=== PATIENT | female | born 1985 | race Caucasian/White ===

== ENCOUNTER 2020-02-24 20:35 | Emergency (ER) | payer OTHER, SELFPAY ==
--- NOTE | ~2020-02-24 | CT_ITS ---
EXAMINATION: CT knee RT w con DATE: 02/24/2020 INDICATION: Severe pain from the posterior lower right thigh to the posterior knee. TECHNIQUE: High resolution computed tomography (CT) of the right knee was performed with 100 mL Omnip aque-350 intravenous contrast. Additional sagittal and coronal reconstructions were performed. Automa yamileth exposure control and iterative reconstruction technique were employed. The dose-length product wa s 579.73 mGy-cm. COMPARISON: Radiographs dated 02/24/2020 FINDINGS: Bone alignment is normal. No fracture. Joint spaces appear normal on nonweightbearing imaging. Promin ent bone island at the posterior medial metaphyseal region of the distal femur with a couple small eddie ne islands at the medial femoral condyle. No right knee joint effusion. Contrast is seen extending fr om the popliteal artery into the proximal posterior tibial, anterior tibial and peroneal arteries wit h no evident aneurysm, dissection or stenosis. No abscess or other abnormally fluid collections. No a bnormally enhancing lesions. Although assessment is significantly more limited with CT than with MRI, the soft tissues including the muscles, tendons and stabilizing ligaments of the knee appear normal. No evident soft tissue swelling or inflammatory stranding. IMPRESSION: 1. Normal contrast-enhanced CT of the right knee. Reviewed, dictated and finalized at location A. ASSISTANT
--- NOTE | ~2020-02-24 | XR_ITS ---
EXAMINATION: XR knee RT 3V DATE: 02/24/2020 20:59 INDICATION: 2 months of nontraumatic posterior right knee pain. TECHNIQUE: Anteroposterior, oblique and crosstable lateral views of the right knee were obtained COMPARISON: None. FINDINGS: Alignment is normal. No fracture. 3 bone islands in the distal femur. No joint effusion/layering lip ohemarthrosis. Soft tissues are unremarkable. IMPRESSION: 1. No right knee joint effusion or acute osseous abnormality. Reviewed, dictated and finalized at location A. UREMENT ENGINEER
[2020-02-24 20:41] VITALS: BP 114/82; PULSE 65; RESP 18; TEMP 36.2; O2SAT 100
[2020-02-24 21:44] LABS: Basophils Percent Auto 0.2 % (0.2-1.2); Eosinophils Absolute Auto 0.1 K/mm3 (0-0.3); Eosinophils Percent Auto 1.5 % (0-4.4); Hematocrit 36.1 % (37.0-47.0); Hemoglobin 12.4 g/dL (12.0-15.0); Immature Granulocyte Absolute 0.03 K/mm3 (0.00-0.031); Immature Granulocyte Percent A 0.5 % (0-0.5); Lymphocytes Absolute Auto 1.91 K/mm3 (0.9-3.2); Lymphocytes Percent Auto 29.4 % (18.3-44.2); Mean Corpuscular HGB Conc 34.3 g/dl (32-36); Mean Corpuscular Hemoglobin 32.4 pg (26-34); Mean Corpuscular Volume 94.3 fl (80-100); Mean Platelet Volume 8.9 fl (7.4-10.4); Monocytes Absolute Auto 0.4 K/mm3 (0.1-0.6); Monocytes Percent Auto 6.8 % (2.6-8.5); Neutrophils Percent Auto 61.6 % (45.5-73.1); Platelet Count Result 219 k/mm3 (150-375); Red Blood Count 3.83 M/mm3 (4.2-5.4); Red Cell Distribution Width 12.5 % (11.5-14.5); White Blood Count 6.5 K/mm3 (4.5-10.0)
[2020-02-24 21:53] LABS: INR 0.9; Prothrombin Time 13.2 Seconds (11.1-14.7)
[2020-02-24 21:54] LABS: Partial Thromboplastin Time 26.4 SECONDS (22.3-36.8)
[2020-02-24 21:58] LABS: Alanine Aminotransferase 16 U/L (4-35); Albumin Level 4.1 g/dL (3.5-5.1); Alkaline Phosphatase 79 U/L (38-126); Anion Gap 5 mmol/L (8-16); Aspartate Amino Transferase 21 U/L (14-36); Bilirubin,Total 0.2 mg/dL (0.2-1.3); Blood Urea Nitrogen 19 mg/dL (7-17); CRP < 0.5 mg/dL (<1.0); Calcium 9.1 mg/dL (8.4-10.2); Carbon Dioxide 29 mmol/L (22-30); Chloride 103 mmol/L (98-107); Creatine Kinase 44 U/L (30-135); Estimated CRCL calculation 90 ml/min; Estimated Glomerular Filt Rate > 60; Glucose 89 mg/dL (65-105); Magnesium 2.1 mg/dL (1.6-2.3); Potassium 4.1 mmol/L (3.4-5.0); Sodium 137 mmol/L (137-145)
[2020-02-24 22:00] LABS: D Dimer 0.27 ug/mL (<0.48)
[2020-02-24] MEDS: IBUPROFEN 600 MG TABLET PO (22:26)
--- NOTE | 2020-02-24 22:44 | ED.EXTPRO ---
HPI - Extremity Problem General Chief complaint: Extremity Problem,Nontraumatic Stated complaint: right leg pain. r/o dvt Time Seen by Provider: 02/24/20 20:58 Source: patient Mode of arrival: ambulatory Limitations: no limitations History of Present Illness HPI Narrative: This patient is a 34 year old female who presents with complaint of right posterior thigh pain and knee pain. She started noticing dull pain to mid to lower posterior thigh in December. This pain is worse with bending her right leg. She also reports area of tenderness posterior medial knee. She does not note any swelling. She states this pain has gradually worsened and it was worse tonight. She denies chest pain or sob. She denies history of DVT. She denies any trauma. She does reports she is active. She reports intermittent tingling to her toes. This pain will start in her poserior thigh due to behind her knee. She has not taken anything for her pain. Related Data Allergies Allergy/AdvReac Type Severity Reaction Status Date / Time soy Allergy Unknown Anaphylactic Verified 02/24/20 20:45 Shock pollen extracts Allergy Congested Verified 02/24/20 20:45 Review of Systems Review of Systems: All systems reviewed & are unremarkable except as noted in HPI and below PMFSH Past Medical History Medical History (Updated 02/25/20 @ 06:09 by Tanja Harrell MD) Patient denies medical problems Family History Family History (System 11/10/19 @ 14:17 by Elda Meneses) Father Diabetes mellitus Other Carcinoma of colon Cerebrovascular accident Depression Family history of cardiovascular disease Family history of malignant neoplasm of esophagus Family history of thyroid disease Social History Social History (System 11/10/19 @ 14:17 by Elda Meneses) Smoking status: Never smoker Gender identity (if verbalized by the patient): Female Sexual Orientation (if Verbalized by the Patient): Straight or Heterosexual Exam Const: General: no acute distress and alert Orientation/consciousness: patient oriented x3 HENMT: Head: normocephalic and atraumatic Face and sinus: face symmetric Eyes: EOM: EOMs intact bilaterally Chest: Chest palpation & inspection: normal inspection of the chest Resp: Effort & Inspection: normal respiratory effort and no retractions Auscultation: clear to auscultation bilaterally Cardio: Rate: regular rate Rhythm: regular rhythm Heart sounds: no murmurs GI: GI Palp: Yes Soft to palpation, No Tenderness to palpation present (GI) and No Guarding due to palpation present (GI) Skin: General skin exam: normal color Rashes: no rashes Neuro: General: patient oriented x3 and moves all extremities Extrem: General: full ROM Right lower extremity: full ROM, normal capillary refill, no joint enlargement, hip/thigh Details: tenderness Location: other (right distal posterior thigh along quad); no lacerations and no unusual warmth and knee Details: tenderness and normal ROM; no edema Psych: Mental Status: mental status grossly normal Affect: normal affect Course Reevaluation(s) Reevaluation #1: I discussed with patient labs show some mild renal insufficiency but otherwise unremarkable. She reports pain is 8/10. No acute findings on xray and given long standing pain she is agreeable to CT . She has palpable pulses. negative d dimer with unlikely DVT as cause. Date: 02/24/20 Time: 22:44 Vital Signs Vital signs: Vital Signs Temperature 97.2 F L 02/24/20 20:41 Pulse Rate 65 02/24/20 20:41 Respiratory Rate 18 02/24/20 20:41 Blood Pressure 114/82 02/24/20 20:41 Pulse Oximetry 100 02/24/20 20:41 Temperature 97.2 F L 02/24/20 20:41 Pulse Rate 59 L 02/25/20 00:10 Respiratory Rate 18 02/25/20 00:10 Blood Pressure 96/64 L 02/25/20 00:10 Pulse Oximetry 99 02/25/20 00:10 MDM - Extremity (Nontraumatic) Lab Data Attestation: I reviewed the patient
[2020-02-25 00:10] VITALS: BP 96/64; PULSE 59; RESP 18; O2SAT 99
== END 2020-02-25 00:33 | disposition home or self-care (01) ==
PROVIDERS: Emergency Provider General Practice
DX: M79.651 Pain in right thigh (principal); M25.561 Pain in right knee
CPT/HCPCS: 36415; 73562; 73701; 80053; 81025; 82550; 83735; 85025; 85380; 85610; 85730; 86140; 99284; A9270; Q9967

== ENCOUNTER 2020-09-05 23:30 | Emergency (ER) | payer OTHER, SELFPAY ==
--- NOTE | ~2020-09-05 | XR_ITS ---
XR abdomen/kub 1V 09/06/2020 05:11 INDICATION: Right flank pain TECHNIQUE: KUB COMPARISON: None FINDINGS: Bowel gas pattern is normal. Moderate colonic fecal loading. There is no evidence of free a ir, mass, organomegaly, ascites or obstruction. No abnormal calculi are seen. Calcifications in the pelvis are believed to be phleboliths. The bones appear intact. IMPRESSION: 1: No acute abdominal abnormality identified. Reviewed, dictated and finalized at location A.
--- NOTE | ~2020-09-05 | CT_ITS ---
EXAMINATION: CT abdomen pelvis wo con DATE: 09/06/2020 05:10 INDICATION: Urinary frequency. Right flank pain. TECHNIQUE: Computed tomography (CT) of the abdomen and pelvis was performed without intravenous contr ast. The dose-length product was 381.25 mGy-cm. Automated exposure control and iterative reconstructi on technique were employed. COMPARISON: CT dated 12/03/2018. FINDINGS: Partially visualized 7 mm left lower lobe nodule. Otherwise, lung bases unremarkable. Heart size normal. No significant pleural or pericardial effusion. No significant vascular abnormality. No lymphadenopathy. There are pelvic phleboliths. There is mild fullness of the right renal pelvis. No obstructing stone is identified. Bladder is unremarkable. There are liver cysts. The spleen, pancreas, adrenal glands and left kidney are unremarkable. No acut e osseous abnormality. IMPRESSION: 1. Mild fullness of the right renal pelvis, nonspecific. No obstructing stone identified. Reviewed, dictated and finalized at location A. IMPRESSION: 1. Mild fullness of the right renal pelvis, nonspecific. No obstructing stone i dentified.
[2020-09-05 23:33] VITALS: BP 103/66; PULSE 62; RESP 14; TEMP 36.3; O2SAT 100
[2020-09-06 00:50] LABS: Add Urine Microscopic? YES; Appearance Urine Cloudy (Clear); Bacteria Urine Trace /hpf; Bilirubin Urine Negative (Negative); Blood Urine 2+ (Negative); Color Urine Yellow (Yellow); Glucose Urine UA Negative (Negative); Ketones Urine Negative (Negative); Leukocyte Esterase Ur 3+ LEU/UL (Negative); Nitrate Urine Negative (Negative); Protein Urine 1+ mg/dL (Negative); RBC Urine >75 /hpf (0-2); Specific Grav Ur 1.011 (1.001-1.035); Squamous Epithelial Cell Urine Moderate /hpf (Few); Urobilinogen Urine Negative mg/dL (<2.0); WBC Urine >75 /hpf
[2020-09-06 01:55] VITALS: BP 113/71; PULSE 64; RESP 20; O2SAT 100
--- NOTE | 2020-09-06 02:58 | PC.NURSE ---
pt came up to intake desk, pt given update at this time.
--- NOTE | 2020-09-06 05:28 | ED.BACK ---
HPI - Back Pain/Injury General Chief Complaint: Urogenital-Female Stated Complaint: uti Time Seen by Provider: 09/06/20 04:29 Source: patient Mode of arrival: ambulatory Limitations: no limitations History of Present Illness HPI Narrative: This is a 35 year old female who presents for evaluation of possible urinary tract infection. She denies mild stinging pain with urination 1 week ago, and she noticed that her urine was cloudy. Her symptoms worsened on Sunday. She is having right lower back pain that has increased. She also reports lower abdominal pressure. She has taken tylenol with minimal relief. She denies fever or chills. She has been having nausea. She has also noticed some pink tinged in her urine. She denies history of kidney stones . She rates pain 8/10. Related Data Allergies Allergy/AdvReac Type Severity Reaction Status Date / Time soy Allergy Unknown Anaphylactic Verified 02/24/20 20:45 Shock pollen extracts Allergy Congested Verified 02/24/20 20:45 Review of Systems Review of Systems: All systems reviewed & are unremarkable except as noted in HPI and below Constitutional: Constitutional: Denies chills and Denies fever(s) Gastrointestinal: Gastrointestinal: Reports abdominal pain, Denies diarrhea, Reports nausea and Denies vomiting Genitourinary: Genitourinary: Reports hematuria, Reports nocturia, Reports dysuria and Reports flank pain Musculoskeletal: Musculoskeletal: Reports back pain PMFSH Past Medical History Medical History Patient denies medical problems Family History Family History (System 11/10/19 @ 14:17 by Elda Meneses) Father Diabetes mellitus Other Carcinoma of colon Cerebrovascular accident Depression Family history of cardiovascular disease Family history of malignant neoplasm of esophagus Family history of thyroid disease Social History Social History (System 11/10/19 @ 14:17 by Elda Meneses) Smoking status: Never smoker Gender identity (if verbalized by the patient): Female Exam Const: General: no acute distress and alert Orientation/consciousness: patient oriented x3 Eyes: EOM: EOMs intact bilaterally Chest: Chest palpation & inspection: normal inspection of the chest Resp: Effort & Inspection: normal respiratory effort and no retractions Auscultation: clear to auscultation bilaterally Cardio: Rate: regular rate Rhythm: regular rhythm Heart sounds: no murmurs GI: GI Palp: Yes Soft to palpation, Yes Tenderness to palpation present (GI) (bilateral lower abdominal pain, right CVA pain), No Guarding due to palpation present (GI) and No Rigid due to palpation Auscultation: normal bowel sounds Back/Spine/Pelvis: Back: CVA tenderness Skin: General skin exam: normal color Rashes: no rashes Neuro: General: patient oriented x3, moves all extremities and CN's II-XI intact bilaterally Course Reevaluation(s) Reevaluation #1: PAtient states she feels better. I Discussed CT and discharge plan and treatment Date: 09/06/20 Time: 06:35 Vital Signs Vital signs: Vital Signs Temperature 97.3 F L 09/05/20 23:33 Pulse Rate 62 09/05/20 23:33 Respiratory Rate 14 09/05/20 23:33 Blood Pressure 103/66 09/05/20 23:33 Pulse Oximetry 100 09/05/20 23:33 Temperature 97.3 F L 09/05/20 23:33 Pulse Rate 64 09/06/20 01:55 Respiratory Rate 20 09/06/20 01:55 Blood Pressure 113/71 09/06/20 01:55 Pulse Oximetry 100 09/06/20 01:55 MDM - Back Pain/Injury Lab Data Attestation: I reviewed the patient's lab results. Result diagrams: 09/06/20 05:25 09/06/20 05:25 Labs: Lab Results 09/05/20 09/06/20 09/06/20 Range/Units 23:57 05:25 05:25 WBC 8.0 (4.5-10.0) K/mm3 RBC 4.09 L (4.2-5.4) M/mm3 Hgb 12.7 (12.0-15.0) g/dL Hct 38.3 (37.0-47.0) % MCV 93.6 (80-100) fl MCH 31.1 (26-34) pg MCHC
[2020-09-06] MEDS: KETOROLAC 30 MG/ML VIAL (*BKC) IV PUSH (05:31)
[2020-09-06] MEDS: ONDANSETRON INJ 4 MG/2 ML VIAL IV PUSH (05:31)
[2020-09-06 05:43] LABS: Basophils Percent Auto 0.1 % (0.2-1.2); Eosinophils Absolute Auto 0.1 K/mm3 (0-0.3); Eosinophils Percent Auto 0.8 % (0-4.4); Hematocrit 38.3 % (37.0-47.0); Hemoglobin 12.7 g/dL (12.0-15.0); Immature Granulocyte Absolute 0.02 K/mm3 (0.00-0.031); Immature Granulocyte Percent A 0.3 % (0-0.5); Lymphocytes Percent Auto 22.6 % (18.3-44.2); Mean Corpuscular HGB Conc 33.2 g/dl (32-36); Mean Corpuscular Hemoglobin 31.1 pg (26-34); Mean Corpuscular Volume 93.6 fl (80-100); Mean Platelet Volume 9.5 fl (7.4-10.4); Monocytes Absolute Auto 0.7 K/mm3 (0.1-0.6); Monocytes Percent Auto 9.3 % (2.6-8.5); Neutrophils Absolute Auto 5.3 K/mm3 (1.3-6.7); Neutrophils Percent Auto 66.9 % (45.5-73.1); Platelet Count Result 181 k/mm3 (150-375); Red Blood Count 4.09 M/mm3 (4.2-5.4)
[2020-09-06 05:54] LABS: Alanine Aminotransferase 18 U/L (4-35); Albumin Level 4.3 g/dL (3.5-5.1); Alkaline Phosphatase 60 U/L (38-126); Anion Gap 8 mmol/L (8-16); Aspartate Amino Transferase 22 U/L (14-36); Bilirubin,Total 0.7 mg/dL (0.2-1.3); Blood Urea Nitrogen 11 mg/dL (7-17); Calcium 9.1 mg/dL (8.4-10.2); Carbon Dioxide 26 mmol/L (22-30); Chloride 106 mmol/L (98-107); Estimated Glomerular Filt Rate > 60; Glucose 93 mg/dL (65-110); Potassium 4.2 mmol/L (3.4-5.0); Sodium 140 mmol/L (137-145)
[2020-09-06 07:23] VITALS: BP 112/69; PULSE 59; RESP 16; O2SAT 97
== END 2020-09-06 07:24 | disposition home or self-care (01) ==
PROVIDERS: Emergency Provider General Practice
DX: N12 Tubulo-interstitial nephritis, not specified as acute or chronic (principal)
CPT/HCPCS: 36415; 74018; 74176; 80053; 81001; 85025; 87077; 87086; 87088; 87186; 96365; 96367; 96375; 99284; J0131; J0696; J1885; J2405